=== PATIENT | female | born 1995 | race Hispanic/Latino ===

== ENCOUNTER 2017-04-24 16:02 | Emergency (ER) | payer MEDICAID, OTHER ==
[2017-04-24 16:02] VITALS: BMI 37.2
--- NOTE | 2017-04-24 16:33 | ED PDOC ---
Arrival/HPI - General Time Seen by Provider: 04/24/17 16:19 Historian: Patient, EMS - History of Present Illness Narrative History of Present Illness (Text): 04/24/17 16:30 21y/o female, pmh including vertigo, chronic psychiatric of depression, nkda, biba c/o dizziness/shaking x 2 hours. Pt. stated that she was walking from home to work, suddenly feeling room spinning sensation, aggravated by sudden head movement, became panic and with hyperventilating, no palpitation, no rash, no night sweat, no dizziness, no change in vision, no other medical or psychological complaints. Past Medical History - Provider Review Nursing Documentation Reviewed: Yes - Past History Past History: No Previous - Psychiatric Hx Substance Use: No - Past Surgical History Past Surgical History: No Previous Family/Social History - Physician Review Nursing Documentation Reviewed: Yes Family/Social History: Unknown Family HX Hx Alcohol Use: No Hx Substance Use: No Allergies/Home Meds Allergies/Adverse Reactions: Allergies No Known Allergies Allergy (Verified 04/24/17 16:39) Review of Systems - Review of Systems Constitutional: absent: Fatigue, Fevers Eyes: absent: Vision Changes ENT: absent: Hearing Changes Respiratory: absent: Cough, Sputum Cardiovascular: absent: Chest Pain Gastrointestinal: absent: Abdominal Pain, Diarrhea, Nausea, Vomiting Musculoskeletal: absent: Arthralgias, Back Pain Neurological: Dizziness. absent: Focal Weakness, Gait Changes, Speech Changes, Facial Droop, Disequilibrium Psychiatric: Anxiety. absent: Depression, Suicidal Ideation Physical Exam Vital Signs Temp Pulse Resp BP Pulse Ox 04/24/17 16:40 98 F 86 16 122/58 L 99 Temperature: Afebrile Blood Pressure: Normal Pulse: Regular Respiratory Rate: Normal Appearance: Positive for: Well-Appearing, Non-Toxic, Comfortable Pain Distress: None Mental Status: Positive for: Alert and Oriented X 3 - Systems Exam Head: Present: Atraumatic, Normocephalic Pupils: Present: PERRL Extroacular Muscles: Present: EOMI Conjunctiva: Present: Normal Mouth: Present: Moist Mucous Membranes Neck: Present: Normal Range of Motion Respiratory/Chest: Present: Clear to Auscultation, Good Air Exchange. No: Respiratory Distress, Accessory Muscle Use Cardiovascular: Present: Regular Rate and Rhythm, Normal S1, S2. No: Murmurs Abdomen: Present: Normal Bowel Sounds. No: Tenderness, Distention, Peritoneal Signs Back: Present: Normal Inspection Upper Extremity: Present: Normal Inspection. No: Cyanosis, Edema Lower Extremity: Present: Normal Inspection. No: Edema Neurological: Present: GCS=15, Speech Normal, Motor Func Grossly Intact, Gait Normal, Memory Normal, Other (normal finger to nose test, normal heel to cardona test, no focal neurological deficits. ) Skin: Present: Warm, Dry, Normal Color. No: Rashes Psychiatric: Present: Alert, Oriented x 3, Normal Insight, Normal Concentration Medical Decision Making ED Course and Treatment: 04/24/17 16:33 -labs -ekg/cxr -IVF/ativan/meclizine -Observe and reassess 04/24/17 19:54 -Chest x-ray show no active disease -EKG show NSR @ 75 BPM, no ST elevation or depression, no T wave inversion. -Pt. feels completely relief -Evaluted by the PES and stable to be discharged home for panic attack as outpatient follow up -Discharge home with meclizine, bed rest, avoid caffeine product, follow up with your own pmd and neurologist/psychiatrist within 2 days, return to the ER for any new or worsening signs or symptoms. - Lab Interpretations Lab Results: 04/24/17 17:30 04/24/17 17:30 Lab Results 04/24/17 17:30: Salicylates < 1 L, Acetaminophen < 10.0 L 04/24/17 17:30: D-Dimer, Quantitative 0.40 04/24/17 17:30: Free T4 1.17, TSH 3rd Generation 1.08 04/24/17 17:30: Sodium 138, Potassium 3.5 L, Chloride 104, Carbon Dioxide 23, Anion Gap 15, BUN 14, Creatinine 0.7, Est GFR ( Amer) > 60, Est GFR (Non- Af Amer) > 60, Random Glucose 87, Calcium 9.7, Total Bilirubin 0.8, AST 23, ALT 35, Alkaline Phosphatase 72, Total Protein 7.3, Albumin 4.4, Globulin 2.9, Albumin/Globulin Ratio 1.5 04/24/17 17:30: WBC 10.0, RBC 4.53, Hgb 14.0, Hct 40.0, MCV 88.3, MCH 30.9, MCHC 35.0, RDW 12.5, Plt Count 248, MPV 10.6, Gran % 78.4 H, Lymph % (Auto) 16.0 L, [place] % (Auto) 5.3, Eos % (Auto) 0.2 L, Baso % (Auto) 0.1, Gran # 7.87 H , Lymph # 1.6, [place] # 0.5, Eos # 0.0, Baso # 0.01 - RAD Interpretation Radiology Orders: 04/24/17 17:02 CHEST PORTABLE [RAD] Stat no active pulmonary disease Drying Room Supervisor: Radiologist - EKG Interpretation EKG Interpretation (Text): 04/24/17 20:03 NSR @ 75 BPM, no ST elevation or depression, no T wave inversion. Interpreted by ED Physician: Yes Type: 12 lead EKG - Medication Orders Current Medication Orders: Discontinued Medications Sodium Chloride (Sodium Chloride 0.9%) 500 mls @ 999 mls/hr IV .Q31M STA Stop: 04/24/17 17:32 Sodium Chloride (Sodium Chloride 0.9%) 1,000 mls @ 999 mls/hr IV .Q1H1M STA Stop: 04/24/17 18:02 Last Admin: 04/24/17 17:38 Dose: 999 mls/hr Lorazepam (Ativan) 1 mg IVP ONCE ONE PRN Reason: Protocol Stop: 04/24/17 17:03 Last Admin: 04/24/17 18:42 Dose: Not Given Non-Admin Reason: Patient Refused Meclizine HCl (Antivert) 50 mg PO STAT STA Stop: 04/24/17 17:05 Last Admin: 04/24/17 17:39 Dose: 50 mg Potassium Chloride (K-Dur 20 Meq Er Tab) 20 meq PO STAT STA Stop: 04/24/17 18:19 Last Admin: 04/24/17 18:42 Dose: 20 meq - PA / [employer] / Resident Statement /DO has reviewed & agrees with the documentation as recorded. Disposition/Present on Arrival - Present on Arrival Any Indicators Present on Arrival: No History of DVT/PE: No History of Uncontrolled Diabetes: No Urinary Catheter: No History of Decub. Ulcer: No - Disposition Have Diagnosis and Disposition been Completed?: Yes Diagnosis: Vertigo, Panic attack Disposition: HOME/ ROUTINE Disposition Time: 19:55 Patient Plan: Discharge Patient Problems: Current Active Problems Problem Status Onset Panic attack Acute Vertigo Acute Condition: IMPROVED Additional Instructions: -Discharge home with meclizine, bed rest, avoid caffeine product, follow up with your own pmd and neurologist/psychiatrist within 2 days, return to the ER for any new or worsening signs or symptoms. Prescriptions: Meclizine [Antivert] 25 mg PO Q6 #30 tab Referrals: Wilfrido Thurman MD [Staff Provider] - Follow [facility] with [facility]] - Follow up with primary Forms: WORK NOTE
[2017-04-24 16:41] VITALS: RESP 16; TEMP 98
[2017-04-24] MEDS ORDERED: Sodium Chloride 0.9% 500 ML IV STA (17:02)
[2017-04-24] MEDS ORDERED: Sodium Chloride 0.9% 1,000 ML IV STA (17:04)
[2017-04-24 17:50] LABS: BASO # 0.01 K/mm3 (0.0-2.0); BASO % 0.1 % (0.0-3.0); EOS % 0.2 % (1.5-5.0); GRAN # 7.87 (1.4-6.5); GRAN % 78.4 % (50.0-68.0); LYMPH # 1.6 (1.2-3.4); MEAN CELL VOLUME 88.3 fl (80.0-105.0); MEAN CORPUSCULAR HEMOGLOBIN 30.9 pg (25.0-35.0); MEAN PLATELET VOLUME 10.6 fl (7.0-11.0); MONO # 0.5 (0.1-0.6); MONO % 5.3 % (1.0-6.0); RED CELL DISTRIBUTION WIDTH 12.5 % (11.5-14.5)
[2017-04-24 18:01] LABS: ALB/GLOB RATIO 1.5 (1.1-1.8); ALKALINE PHOSPHATASE 72 U/L (38-126); ALT/SGPT 35 U/L (7-56); AST/SGOT 23 U/L (14-36); BILIRUBIN,TOTAL 0.8 mg/dL (0.2-1.3); BLOOD UREA NITROGEN 14 mg/dL (7-21); CALCIUM 9.7 mg/dL (8.4-10.5); CARBON DIOXIDE 23 mmol/L (21-33); CHLORIDE 104 mmol/L (98-107); GFR AFRICAN-AMERICAN > 60; GLUCOSE,RANDOM 87 mg/dL (70-110); POTASSIUM 3.5 mmol/L (3.6-5.0); SODIUM 138 mmol/L (132-148); TOTAL PROTEIN 7.3 g/dL (5.8-8.3)
[2017-04-24] MEDS ORDERED: Potassium Chloride 20 mEq ER Tab PO STA (18:18)
[2017-04-24 18:33] LABS: FREE T4 1.17 ng/dL (0.78-2.19)
--- NOTE | 2017-04-24 18:34 | RAD ---
HISTORY: medical clearance COMPARISON: No prior. FINDINGS: LUNGS: The lungs are well inflated and clear. PLEURA: No significant pleural effusion identified, no pneumothorax apparent. CARDIOVASCULAR: Normal. OSSEOUS STRUCTURES: No significant abnormalities. VISUALIZED UPPER ABDOMEN: Normal. OTHER FINDINGS: None. IMPRESSION: No active pulmonary disease.
[2017-04-24 18:47] LABS: THYROID STIMULATING HORMONE 1.08 mIU/mL (0.46-4.68)
[2017-04-24 20:05] VITALS: BP 129/71; PULSE 82; O2SAT 96
--- NOTE | 2017-04-25 17:58 | CARD ---
APPROVED REPORT EKG Measurement Heart [id number] <Conclusion> Normal sinus rhythm with sinus arrhythmia Nonspecific ST abnormality Abnormal ECG
== END 2017-04-24 20:18 | disposition home or self-care (01) ==
LOC: ED 16:02
DX: R42 Dizziness and giddiness (principal); F41.0 Panic disorder [episodic paroxysmal anxiety]
CPT/HCPCS: 71010; 80053; 84439; 84443; 85025; 85378; 93005; 96360; 99283; G0480; J7040

== ENCOUNTER 2017-08-07 14:53 | Emergency (ER) | payer MEDICAID, OTHER ==
[2017-08-07 14:54] VITALS: BMI 37.2
[2017-08-07 15:29] VITALS: BP 132/83; PULSE 74; RESP 19; TEMP 98.7; O2SAT 100
--- NOTE | 2017-08-07 15:44 | ED PDOC ---
Arrival/HPI - General Chief Complaint: Abdominal Pain Time Seen by Provider: 08/07/17 15:43 Historian: Patient - History of Present Illness Narrative History of Present Illness (Text): 08/07/17 15:44 This 21 yo female, who denies pmh, presents to this ED c/o intermittent generalized abdominal pain, nausea, and vomiting x 3 - 4 days. Patient denies diarrhea, vaginal bleeding, rectal bleeding, sob, cp, hematuria, dysuria, trauma , or dizziness. Patient noted urinary frequency, but denies dysuria. LMP: 06/27/17 Past Medical History - Provider Review Nursing Documentation Reviewed: Yes - Past History Past History: No Previous - Cardiac Hx Cardiac Disorders: No Hx Hypertension: No - Pulmonary Hx Tuberculosis: No - Neurological HX Cerebrovascular Accident: No Hx Seizures: No - Hematological/Oncological Hx Cancer: No - Genitourinary/Gynecological Hx Sexually Transmitted Diseases: No - Psychiatric Hx Substance Use: No - Past Surgical History Past Surgical History: No Previous Family/Social History - Physician Review Nursing Documentation Reviewed: Yes Family/Social History: Other (noncontributory) Smoking Status: Never Smoked Hx Alcohol Use: No Hx Substance Use: No Substance used: marijuana Allergies/Home Meds Allergies/Adverse Reactions: Allergies No Known Allergies Allergy (Verified 04/24/17 16:39) Review of Systems - Review of Systems Constitutional: Normal. absent: Fatigue, Weight Change, Fevers Eyes: Normal ENT: Normal Respiratory: Normal. absent: SOB, Cough Cardiovascular: Normal. absent: Chest Pain Gastrointestinal: Abdominal Pain, Nausea Genitourinary Female: Frequency. absent: Dysuria, Hematuria, Vaginal Bleeding, Vaginal Discharge Musculoskeletal: Normal. absent: Back Pain, Neck Pain Skin: Normal Neurological: Normal. absent: Headache, Dizziness, Focal Weakness, Gait Changes , Speech Changes, Facial Droop, Disequilibrium, Seizure Endocrine: Normal Hemo/Lymphatic: Normal Psychiatric: Normal Physical Exam Vital Signs Temp Pulse Resp BP Pulse Ox 08/07/17 15:25 98.7 F 74 19 132/83 100 Temperature: Afebrile Blood Pressure: Normal Pulse: Regular Respiratory Rate: Normal Appearance: Positive for: Well-Appearing, Non-Toxic, Comfortable Pain Distress: None Mental Status: Positive for: Alert and Oriented X 3 - Systems Exam Head: Present: Atraumatic, Normocephalic Pupils: Present: PERRL Extroacular Muscles: Present: EOMI Conjunctiva: Present: Normal Mouth: Present: Moist Mucous Membranes Neck: Present: Normal Range of Motion Respiratory/Chest: Present: Clear to Auscultation, Good Air Exchange. No: Respiratory Distress, Accessory Muscle Use Cardiovascular: Present: Regular Rate and Rhythm, Normal S1, S2. No: Murmurs Abdomen: Present: Normal Bowel Sounds. No: Tenderness, Distention, Peritoneal Signs, Rebound, Guarding Back: Present: Normal Inspection. No: CVA Tenderness Upper Extremity: Present: Normal Inspection, Normal ROM. No: Cyanosis, Edema Lower Extremity: Present: Normal Inspection. No: Edema Neurological: Present: GCS=15, CN II-XII Intact, Speech Normal Skin: Present: Warm, Dry, Normal Color. No: Rashes Psychiatric: Present: Alert, Oriented x 3, Normal Insight, Normal Concentration Medical Decision Making ED Course and Treatment: 08/07/17 19:09 Re-evaluation. Patient feels better. Discussed results and plan with patient who expresses understanding. All questions answered and there is agreement with the plan to discharge home with instructions. Patient stable for discharge. Return if symptoms persist or worsen. Patient tolerated po fluids during the course of ED visit. Patient denies abdominal or pelvic pain prior d/c. Abdomen is soft, nt/nd. Patient was recommended to f/u [facility] in 1-2 days. To review urine culture with her doctor in 2-3 days. To return to ED if symptoms worsen. Patient was prescribed Keflex, and multivitamin Blood type: O positive Re-evaluation Time: 19:10 Reassessment Condition: Re-examined, Improved - Lab Interpretations Lab Results: 08/07/17 16:12 08/07/17 16:12 Lab Results 08/07/17 18:27: Blood Type O POSITIVE, Antibody Screen Negative, BBK History Checked No verified bt 08/07/17 18:27: Urine Color Yellow, Urine Appearance Sl cloudy, Urine pH 6.0, Ur Specific [place] >= 1.030, Urine Protein Trace H, Urine Glucose (UA) Negative , Urine Ketones Negative, Urine Blood Negative, Urine Nitrate Negative, Urine Bilirubin Negative, Urine Urobilinogen 0.2, Ur Leukocyte Esterase Small H, Urine RBC 1 - 3, Urine WBC 10 - 15, Ur Epithelial Cells Many, Urine Bacteria Many, Urine HCG, Qual Positive 08/07/17 16:12: Beta HCG, Quant 00068.00 H 08/07/17 16:12: Sodium 137, Potassium 3.6, Chloride 104, Carbon Dioxide 23, Anion Gap 14, BUN 5 L, Creatinine 0.6 L, Est GFR ( Amer) > 60, Est GFR ( Non-Af Amer) > 60, Random Glucose 90, Calcium 9.5, Total Bilirubin 0.5, AST 21, ALT 29, Alkaline Phosphatase 66, Total Protein 7.5, Albumin 4.3, Globulin 3.2, Albumin/Globulin Ratio 1.3 08/07/17 16:12: WBC 9.0, RBC 4.31, Hgb 13.3, Hct 37.9, MCV 87.9, MCH 30.9, MCHC 35.1, RDW 12.4, Plt Count 238, MPV 10.3, Gran % 70.4 H, Lymph % (Auto) 22.2, [place] % (Auto) 6.2 H, Eos % (Auto) 1.0 L, Baso % (Auto) 0.2, Gran # 6.36, Lymph # 2.0, [place] # 0.6, Eos # 0.1, Baso # 0.02 I have reviewed the lab results: Yes Interpretation: Abnormal lab values (acute cystitis) - RAD Interpretation Narrative RAD Interpretations (Text): 08/07/17 19:10 Indication: Abdominal pain Comparison: None available. Technique: Transvaginal pelvic ultrasound Findings: The uterus measures approximately 8.4 x 5.5 x 5.4 cm. Anteverted. Cervix length measures approximately 2.7 cm. There is a single intrauterine fetus present. 3 mm yolk sac. The gestational sac measures 2.3 cm and is compatible with a gestational age of 6 weeks 6 days. The crown-rump length measures 0.8 cm and is compatible with a gestational age of 6 weeks 5 days. There is heart motion which measured 174 BPM. The right ovary measures 3.2 x 2.0 x 2.3 cm. The left ovary measures 2.9 x 1.8 x 2.9 cm and contains 1.3 x 1.2 x 1.2 cm probable cyst. Blood flow was demonstrated to both ovaries. The cervix measures approximately 2.7 cm in length. Impression: Live single intrauterine with estimated gestational age 6 weeks 6 days by gestational sac calculation and 6 weeks 5 days by crown-rump length calculation. heart rate 174 bpm. Advise an anomaly screen at 16-18 weeks gestational age 1.3 cm probable left ovarian cyst. Radiology Orders: 08/07/17 15:49 OB TRANSVAGINAL [US] Stat - Medication Orders Current Medication Orders: Discontinued Medications Cephalexin Monohydrate (Keflex) 500 mg PO STAT STA PRN Reason: Protocol Stop: 08/07/17 19:05 Last Admin: 08/07/17 19:26 Dose: 500 mg Disposition/Present on Arrival - Present on Arrival Any Indicators Present on Arrival: No History of DVT/PE: No History of Uncontrolled Diabetes: No Urinary Catheter: No History of Decub. Ulcer: No History Surgical Site Infection Following: None - Disposition Have Diagnosis and Disposition been Completed?: Yes Diagnosis: Urinary tract infection during in first trimester, Abdominal pain affecting , Ovarian cyst Disposition: HOME/ ROUTINE Disposition Time: 19:11 Patient Plan: Discharge Condition: IMPROVED Discharge Instructions (ExitCare): Urinary Tract Infection in (ED) Additional Instructions: Call private doctor for follow up visit. Also call [facility] for revaluation in 2-3 days. Review urine culture report in 3-5 days with your doctor. take medication as instructed. Return to emergency if symptoms worsen. Prescriptions: Cephalexin [cephalexin] 500 mg PO BID #10 cap Multivit/Folic Acid/I [ Plus] 1 tab PO DAILY #30 tab Referrals: [facility]aredes, [Non-Staff] - Follow up with primary [facility] [Outside] - [facility] [[facility]] - Follow up with primary Forms: [employer] (Lebanese), WORK NOTE
[2017-08-07 16:31] LABS: BASO # 0.02 K/mm3 (0.0-2.0); BASO % 0.2 % (0.0-3.0); EOS # 0.1 (0.0-0.7); GRAN # 6.36 (1.4-6.5); GRAN % 70.4 % (50.0-68.0); HEMATOCRIT 37.9 % (36.0-48.0); LYMPH % 22.2 % (22.0-35.0); MEAN CELL VOLUME 87.9 fl (80.0-105.0); MEAN CORPUSCULAR HEMOGLOBIN 30.9 pg (25.0-35.0); MEAN CORPUSCULAR HGB CONC 35.1 g/dl (31.0-37.0); MEAN PLATELET VOLUME 10.3 fl (7.0-11.0); MONO # 0.6 (0.1-0.6); MONO % 6.2 % (1.0-6.0); RED CELL DISTRIBUTION WIDTH 12.4 % (11.5-14.5)
[2017-08-07 16:40] LABS: ALB/GLOB RATIO 1.3 (1.1-1.8); ALKALINE PHOSPHATASE 66 U/L (38-126); ALT/SGPT 29 U/L (7-56); AST/SGOT 21 U/L (14-36); BILIRUBIN,TOTAL 0.5 mg/dL (0.2-1.3); BLOOD UREA NITROGEN 5 mg/dL (7-21); CALCIUM 9.5 mg/dL (8.4-10.5); CARBON DIOXIDE 23 mmol/L (21-33); CHLORIDE 104 mmol/L (98-107); GFR AFRICAN-AMERICAN > 60; GLUCOSE,RANDOM 90 mg/dL (70-110); POTASSIUM 3.6 mmol/L (3.6-5.0); SODIUM 137 mmol/L (132-148); TOTAL PROTEIN 7.5 g/dL (5.8-8.3)
--- NOTE | 2017-08-07 18:13 | US ---
Indication: Abdominal pain Comparison: None available. Technique: Transvaginal pelvic ultrasound Findings: The uterus measures approximately 8.4 x 5.5 x 5.4 cm. Anteverted. Cervix length measures approximately 2.7 cm. There is a single intrauterine fetus present. 3 mm yolk sac. The gestational sac measures 2.3 cm and is compatible with a gestational age of 6 weeks 6 days. The crown-rump length measures 0.8 cm and is compatible with a gestational age of 6 weeks 5 days. There is heart motion which measured 174 BPM. The right ovary measures 3.2 x 2.0 x 2.3 cm. The left ovary measures 2.9 x 1.8 x 2.9 cm and contains 1.3 x 1.2 x 1.2 cm probable cyst. Blood flow was demonstrated to both ovaries. The cervix measures approximately 2.7 cm in length. Impression: Live single intrauterine with estimated gestational age 6 weeks 6 days by gestational sac calculation and 6 weeks 5 days by crown-rump length calculation. heart rate 174 bpm. Advise an anomaly screen at 16-18 weeks gestational age 1.3 cm probable left ovarian cyst.
[2017-08-07 18:58] LABS: URINE APPEARANCE SL CLOUDY (CLEAR); URINE BILIRUBIN NEGATIVE (NEGATIVE); URINE BLOOD NEGATIVE (NEGATIVE); URINE COLOR YELLOW (YELLOW); URINE GLUCOSE (UA) NEGATIVE (NEGATIVE); URINE KETONE NEGATIVE (NEGATIVE); URINE LEUKOCYTE ESTERASE SMALL Leu/uL (NEGATIVE); URINE PROTEIN TRACE mg/dL (<30 mg/dL); URINE UROBILINOGEN 0.2 E.U./dL (<1 E.U./dL)
[2017-08-07 19:01] LABS: URINE BACTERIA MANY (NEG); URINE EPITHELIAL CELLS MANY /hpf (0-5)
== END 2017-08-07 19:26 | disposition home or self-care (01) ==
LOC: ED 14:53
DX: O23.41 Unspecified infection of urinary tract in pregnancy, first trimester (principal); O34.81 Maternal care for other abnormalities of pelvic organs, first trimester; N83.202 Unspecified ovarian cyst, left side; Z3A.01 Less than 8 weeks gestation of pregnancy